=== PATIENT | male | born 1940 | race Caucasian/White ===

== ENCOUNTER → 2018-02-28 10:34 | Outpatient (CLI) | payer MEDICARE, BC, SELFPAY ==
--- NOTE | 2018-02-28 | DI.US.S_ITS ---
PROCEDURE: US CAROTID DOPPLER BI INDICATIONS: LEFT BRUIT TECHNIQUE: Color and pulse Doppler interrogation was performed of both carotid systems, with image documentation and velocity measurements. COMPARISON: [facility], , CAROTID ARTERY DOPPLER BILAT, 05/21/2014, 12:44. [facility], , CAROTID ARTERY DOPPLER BILAT, 11/26/2008, 8:29. FINDINGS: Stenosis calculations are based on SRU (Society of Radiologists in Ultrasound) criteria. Right side: Brachial blood pressure: 146/86 mm Hg. Common carotid artery peak systolic velocity: 112 cm/sec. Internal carotid artery peak systolic velocity: 80 cm/sec. Internal carotid artery end diastolic velocity: 31 cm/sec. External carotid artery peak systolic velocity: 92 cm/sec. ICA/CCA peak systolic ratio: 0.7. Shaw scale imaging description: Mild soft plaque Percent internal carotid artery stenosis: Less than 50% stenosis. Vertebral artery: Flow direction is antegrade. Left side: Brachial blood pressure: 147/83 mm Hg. Common carotid artery peak systolic velocity: 97 cm/sec. Internal carotid artery peak systolic velocity: 80 cm/sec. Internal carotid artery end diastolic velocity: 24 cm/sec. External carotid artery peak systolic velocity: 86 cm/sec. ICA/CCA peak systolic ratio: 0.7. Shaw scale imaging description: Mild soft plaque Percent internal carotid artery stenosis: Less than 50% stenosis. Vertebral artery: Flow direction is antegrade. IMPRESSION: Less than 50% stenosis at the proximal internal carotid arteries bilaterally, no change from comparison study from May of 2014. Dictated by: Ismael Hummel M.D. on 02/28/2018 at 12:57 Approved by: Ismael Hummel M.D. on 02/28/2018 at 12:59
== END ==
PROVIDERS: Family Provider Family Medicine; PCP Family Medicine; Visit Provider Family Medicine
DX: I65.23 Occlusion and stenosis of bilateral carotid arteries (principal)
CPT/HCPCS: 93880

== ENCOUNTER → 2018-03-08 09:49 | Outpatient (CLI) | payer MEDICARE, BC, SELFPAY | PROVIDERS: PCP Family Medicine; Visit Provider Family Medicine | DX: N40.1 Benign prostatic hyperplasia with lower urinary tract symptoms (principal) | CPT/HCPCS: 36415; 84153 ==

== ENCOUNTER → 2018-08-16 10:38 | Outpatient (CLI) | payer MEDICARE, BC, SELFPAY | PROVIDERS: PCP Family Medicine; Visit Provider Family Medicine | DX: N40.1 Benign prostatic hyperplasia with lower urinary tract symptoms (principal) | CPT/HCPCS: 36415; 84153 ==

== ENCOUNTER → 2019-04-04 09:04 | Outpatient (CLI) | payer MEDICARE, SELFPAY ==
[2019-04-04 11:23] LABS: Alanine Aminotransferase 14 IU/L (21-72); Albumin 4.4 g/dL (3.5-5.0); Albumin Globulin Ratio 1.5 (1.0-2.8); Alkaline Phosphatase 62 U/L (38-126); Aspartate Aminotransferase 30 IU/L (17-59); BUN Creatinine Ratio 13.8 (6-22); Blood Urea Nitrogen 11 mg/dL (9-20); Calcium 9.9 mg/dL (8.4-10.2); Carbon Dioxide 29 mmol/L (22-32); Chloride 102 mmol/L (98-107); Cholesterol 252 mg/dL (140-199); Estimated Glomerular Filt Rate > 60.0 mL/min (>60); Globulin 2.9 g/dL (1.7-4.1); Glucose 90 mg/dL (80-110); HDL Cholesterol 44 mg/dL (40-60); HEMOLYSIS < 15 (0-50); LDL Cholesterol Calculated 178 mg/dL (<100); Potassium 4.3 mmol/L (3.4-5.1); Sodium 141 mmol/L (137-145); Total Protein 7.3 g/dL (6.3-8.2); Triglycerides 152 mg/dL (35-150)
[2019-04-04 11:25] LABS: Add Manual Diff / Slide Review NO; Basophils Absolute Auto 0 /uL (0-100); Basophils Percent Auto 0.8 % (0-2); Eosinophils Absolute Auto 100 /uL (0-450); Eosinophils Percent Auto 3.2 % (2-4); Hematocrit 40.1 % (41-53); Hemoglobin 13.5 g/dL (13.5-17.5); Lymphocytes Absolute Auto 1400 /uL (1100-4500); Lymphocytes Percent Auto 32.6 % (25-40); Mean Corpuscular HGB Conc 33.6 % (30-36); Mean Corpuscular Hemoglobin 31.2 PG (26-34); Mean Corpuscular Volume 92.8 fL (80-100); Monocytes Absolute Auto 400 /uL (0-900); Neutrophils Absolute Auto 2400 /uL (1500-7000); Neutrophils Percent Auto 54.4 % (50-75); Platelet Count 233 X10^3/uL (150-400); Red Blood Cell Count 4.32 X10^6/uL (4.5-5.9); Red Cell Distribution Width 13.7 % (11.6-14.8); White Blood Cell Count 4.4 X10^3/uL (4.5-11.0)
== END ==
PROVIDERS: PCP Family Medicine; Visit Provider Family Medicine
DX: I35.0 Nonrheumatic aortic (valve) stenosis (principal); E78.2 Mixed hyperlipidemia; I73.9 Peripheral vascular disease, unspecified
CPT/HCPCS: 36415; 80053; 80061; 85025

== ENCOUNTER → 2019-07-16 13:43 | Outpatient (CLI) | payer MEDICARE, SELFPAY ==
--- NOTE | 2019-07-16 | DI.ECHO.S_ITS ---
[facility]---------+ [facility] +---------+ : : [address] : [address] [address] : : : : [id number] : : : : Phone: [phone]+ Echocardiogram Report + + :Name: GAURAV DUMONT Study Date: 07/16/2019 Height: 76 in : :[facility] Weight: 175 lb : : Gender: Male BSA: 2.1 m2 : :: 1940 Age: 79 yrs BP: 128/58 mmHg: :Reason For Study: Aortic valve stenosis : : Performed By: Rosalva Padilla : :Referring: DWIGHT RUBALCAVA : + + Interpretation Summary The left ventricle is normal in size. Left ventricular systolic function is normal without focal wall motion abnormalities. The ejection fraction is estimated to be 60-65%. Diastolic parameters suggest a relaxation abnormality of the left ventricle, consistent with probable normal filling pressures. The right ventricle grossly appears normal in size with probable normal systolic function. The right ventricular systolic pressure is estimated to be at least 22 mmHg based on an estimated right atrial pressure of 3 mm Hg. The left atrial size is normal. Right atrial size is normal. There is moderate aortic stenosis which has increased since prior study. The calculated aortic valve area is 1.2 cm2. The peak aortic velocity is 3.3 m/sec. The peak aortic velocity on the previous exam was 2.9 m/sec. There is no other significant valvular heart disease. The ascending aorta is mildly enlarged. Procedure: A two-dimensional transthoracic echocardiogram with color flow and Doppler was performed. The study quality was technically adequate. Comparison is made with the echocardiogram of 01-11-17. The patient was in normal sinus rhythm during the exam. Left Ventricle: The left ventricle is normal in size. Left ventricular wall thickness is borderline increased. Left ventricular systolic function is normal without focal wall motion abnormalities. The ejection fraction is estimated to be 60-65%. Diastolic parameters suggest a relaxation abnormality of the left ventricle, consistent with probable normal filling pressures. Right Ventricle: The right ventricle grossly appears normal in size with probable normal systolic function. Atria: The left atrial size is normal. Right atrial size is normal. The interatrial septum is intact with no evidence for an atrial septal defect. Mitral Valve: The mitral valve leaflets appear borderline thickened, but open well. There is mild mitral annular calcification. There is trace mitral regurgitation. Aortic Valve: There is moderate aortic stenosis. The calculated aortic valve area is 1.2 cm2. The peak aortic velocity is 3.3 m/sec. The peak aortic velocity on the previous exam was 2.9 m/sec. The aortic valve mean gradient is 27 mmHg. Severity ratio is 0.26. No aortic regurgitation is present. Tricuspid Valve: The tricuspid valve is normal in structure and function. There is a trace or physiologic amount of tricuspid regurgitation. The right ventricular systolic pressure is estimated to be at least 22 mmHg based on an estimated right atrial pressure of 3 mm Hg. Pulmonic Valve: The pulmonic valve is not well visualized. There is trace pulmonic regurgitation. There is no other significant valvular heart disease. Great Vessels: The aortic root is borderline dilated. The ascending aorta is mildly enlarged. The aortic arch is normal in size. The IVC is of normal diameter and collapses greater than 50% with a sniff. This suggests a low right atrial pressure of 3 mm Hg. Pericardium/ Pleura There is no pericardial effusion. There is no pleural effusion. MMode/2D Measurements & Calculations LVIDd: 4.7 cm LVOT diam: 2.4 cm LVIDs: 2.5 cm Ao root diam: 3.8 cm FS: 46.8 % Aortic Jxn: 3.2 cm IVSd: 1.0 cm asc Aorta Diam: 3.6 cm LVPWd: 1.0 cm Ao Arch Diam (Prox Trans): 2.7 cm LV cheung. diameter/BSA (cm/m^2): 2.3 LV sys. diameter/BSA (cm/m^2): 1.2 LA dimension: 2.9 cm RA long axis: 4.2 cm LA A2 area: 20.2 cm2 RA area: 12.2 cm2 LA A4 area: 20.8 cm2 RA vol: 30.3 ml LA length (vol): 5.9 cm RA : 14.5 ml/m2 LA vol: 60.9 ml RVDd major: 5.4 cm LA vol index: 29.1 ml/m2 RVD1 (basal): 3.0 cm RVD2 (mid): 2.9 cm EARNEST (plan): 1.2 cm2 Doppler Measurements & Calculations Ao V2 max: 334.5 cm/sec LVOT Max Santiago: 88.2 cm/sec Ao V2 mean: 249.0 cm/sec LV V1 max P.1 mmHg Ao max P.8 mmHg LV V1 VTI: 20.9 cm Ao mean P.3 mmHg EARNEST(I,D): 1.2 cm2 Ao V2 VTI: 80.1 cm EARNEST(V,D): 1.2 cm2 sev ratio: 0.26 EARNEST indexed to BSA (cm^2/m^2): 0.56 MV E max santiago: 61.4 cm/sec TR max santiago: 218.9 cm/sec MV A max santiago: 107.2 cm/sec TR max P.2 mmHg MV E/A: 0.57 PA V2 max: 69.0 cm/sec Med Peak E' Santiago: 3.8 cm/sec PA V2 mean: 40.1 cm/sec E/E' med: 16.2 PA mean P.83 mmHg Lat Peak E' Santiago: 2.2 cm/sec PA Accel Time: 0.12 sec E/E' lat: 27.8 E/e' average: 22.0 MV dec time: 0.53 sec MV P1/2t: 155.5 msec MV P1/2t max santiago: 61.7 cm/sec SV(LVOT): 93.6 ml MVA(P1/2t): 1.4 cm2 Reading Physician:03:15 PM
== END ==
PROVIDERS: PCP Family Medicine; Visit Provider Family Medicine
DX: I35.0 Nonrheumatic aortic (valve) stenosis (principal); I77.89 Other specified disorders of arteries and arterioles
CPT/HCPCS: 93306

== ENCOUNTER → 2019-08-08 09:38 | Outpatient (CLI) | payer MEDICARE, SELFPAY ==
[2019-08-08 12:16] LABS: Prostate Specific Antigen 3.18 ng/mL (0.10-4.00)
== END ==
PROVIDERS: PCP Family Medicine; Visit Provider Family Medicine
DX: N40.1 Benign prostatic hyperplasia with lower urinary tract symptoms (principal)
CPT/HCPCS: 36415; 84153

== ENCOUNTER → 2019-08-13 14:47 | Outpatient (CLI) | payer MEDICARE, SELFPAY ==
--- NOTE | 2019-08-13 | DI.RAD.S_ITS ---
PROCEDURE: XR LUMBAR SPINE 2-3V INDICATIONS: RT LEG RADICULOPATHY TECHNIQUE: 3 views of the lumbar spine were acquired. COMPARISON: None. FINDINGS: Bones: 5 [id number] vertebrae are present. Mild levo scoliosis centered at the L3 level. Multilevel disc degeneration, severe at the L2-L3 and to lesser degree L3-L4 and L5-S1 levels. Moderate L5-S1 facet joint arthropathy. No vertebral body compression fractures. No suspicious bony lesions. Soft tissues: Overlying bowel gas pattern is normal. No suspicious soft tissue calcifications. Vascular calcifications indicate atherosclerosis. IMPRESSION: Multilevel degenerative change. Dictated by: Nghia SUH Interpreted: Lyndsay Robledo MD on 08/13/2019 at 16:37 Approved by: Lyndsay Robledo M.D. on 08/13/2019 at 17:05
== END ==
PROVIDERS: PCP Family Medicine; Visit Provider Family Medicine
DX: M47.26 Other spondylosis with radiculopathy, lumbar region (principal); M47.27 Other spondylosis with radiculopathy, lumbosacral region
CPT/HCPCS: 72100

== ENCOUNTER → 2019-12-17 15:57 | Outpatient (CLI) | payer MEDICARE, SELFPAY ==
--- NOTE | 2019-12-17 | DI.ECHO.S_ITS ---
[facility]---------+ [facility] +---------+ : : [address] : [address] [address] : : : : [id number] : : : : Phone: [phone]+ Echocardiogram Report + + :Name: GAURAV DUMONT Study Date: 12/17/2019 Height: 76 in : :[facility] Weight: 170 lb : : Gender: Male BSA: 2.1 m2 : :: 1940 Age: 79 yrs BP: 130/86 mmHg: :Reason For Study: Aortic Stenosis : :Ordering Physician: Dr. Childress : :[facility] Performed By: Justine Chavira : :Referring: DWIGHT RUBALCAVA : + + Interpretation Summary The left ventricle is normal in size. The ejection fraction is estimated to be 60-65%. Left ventricular wall motion is normal. LVEF has not changed. Diastolic parameters suggest a relaxation abnormality of the left ventricle, consistent with probable normal filling pressures. The right ventricle is normal in size and function. Pulmonary artery pressures cannot be estimated because of the lack of a measurable TR jet velocity. Both atria are normal in size. There is moderate to severe aortic stenosis which has slightly increased in severity since prior study. The calculated aortic valve area is 1.1 cm2. The peak aortic velocity is 3.96 m/sec. There is no other significant valvular heart disease. The ascending aorta is mildly enlarged. Procedure: A two-dimensional transthoracic echocardiogram with color flow and Doppler was performed. The study quality was technically adequate. Comparison is made with the echocardiogram of 07/16/2019. The patient was in normal sinus rhythm during the exam. Left Ventricle: The left ventricle is normal in size. Left ventricular wall thickness is borderline increased. The ejection fraction is estimated to be 60-65%. Left ventricular wall motion is normal. Diastolic parameters suggest a relaxation abnormality of the left ventricle, consistent with probable normal filling pressures. Right Ventricle: The right ventricle is normal in size and function. Atria: Both atria are normal in size. There is no Doppler evidence for an interatrial shunt. Mitral Valve: The mitral valve leaflets appear borderline thickened, but open well. There is mild mitral annular calcification. There is trace mitral regurgitation. Aortic Valve: The aortic valve is trileaflet. The aortic valve is moderately calcified. There is moderate to severe aortic stenosis. The calculated aortic valve area is 1.1 cm2. The peak aortic velocity is 3.96 m/sec. No aortic regurgitation is present. Tricuspid Valve: The tricuspid valve is normal in structure and function. There is a trace or physiologic amount of tricuspid regurgitation. Pulmonary artery pressures cannot be estimated because of the lack of a measurable TR jet velocity. Pulmonic Valve: The pulmonic valve is not well seen, but is grossly normal. There is a trace or physiologic amount of pulmonic regurgitation. There is no other significant valvular heart disease. Great Vessels: The aortic root is normal size. The ascending aorta is mildly enlarged. The inferior vena cava was not visualized. Pericardium/ Pleura There is no pericardial effusion. There is no pleural effusion. MMode/2D Measurements & Calculations LVIDd: 4.2 cm LVOT diam: 2.3 cm LVIDs: 2.6 cm Ao root diam: 3.5 cm FS: 38.2 % asc Aorta Diam: 3.6 cm IVSd: 1.0 cm Ao Arch Diam (Prox Trans): 3.2 cm LVPWd: 0.99 cm LV cheung. diameter/BSA (cm/m^2): 2.0 LV sys. diameter/BSA (cm/m^2): 1.3 LA A2 area: 13.9 cm2 RA long axis: 4.5 cm LA A4 area: 12.1 cm2 RA area: 12.1 cm2 LA length (vol): 4.4 cm RA vol: 27.5 ml LA vol: 32.8 ml RA : 13.3 ml/m2 LA vol index: 15.8 ml/m2 RVD1 (basal): 2.9 cm TAPSE: 2.0 cm Doppler Measurements & Calculations Ao V2 max: 375.3 cm/sec LVOT Max Santiago: 103.6 cm/sec Ao V2 mean: 266.0 cm/sec LV V1 max P.1 mmHg Ao max P.3 mmHg LV V1 VTI: 20.5 cm Ao mean P.5 mmHg EARNEST(I,D): 1.2 cm2 Ao V2 VTI: 74.6 cm EARNEST(V,D): 1.2 cm2 sev ratio: 0.27 EARNEST indexed to BSA (cm^2/m^2): 0.56 MV E max santiago: 58.3 cm/sec PA V2 max: 73.2 cm/sec MV A max santiago: 117.7 cm/sec PA V2 mean: 42.8 cm/sec MV E/A: 0.50 PA mean P.95 mmHg Lat Peak E' Santiago: 9.7 cm/sec PA Accel Time: 0.13 sec E/E' lat: 6.0 MV dec time: 0.28 sec MV P1/2t: 82.9 msec MV P1/2t max santiago: 58.0 cm/sec SV(LVOT): 86.7 ml MVA(P1/2t): 2.7 cm2 Reading Physician:06:49 PM
== END ==
PROVIDERS: PCP Family Medicine; Referring Provider Family Medicine; Visit Provider Family Medicine
DX: I35.0 Nonrheumatic aortic (valve) stenosis (principal); R06.09 Other forms of dyspnea; I77.89 Other specified disorders of arteries and arterioles
CPT/HCPCS: 93306

== ENCOUNTER → 2020-05-28 08:56 | Outpatient (CLI) | payer OTHER, SELFPAY ==
[2020-05-28 09:55] LABS: Add Manual Diff / Slide Review NO; Basophils Absolute Auto 0 /uL (0-100); Basophils Percent Auto 0.7 % (0-2); Eosinophils Absolute Auto 100 /uL (0-450); Eosinophils Percent Auto 2.1 % (2-4); Hematocrit 39.4 % (41-53); Hemoglobin 13.1 g/dL (13.5-17.5); Lymphocytes Absolute Auto 1200 /uL (1100-4500); Lymphocytes Percent Auto 19.2 % (25-40); Mean Corpuscular HGB Conc 33.2 % (30-36); Mean Corpuscular Hemoglobin 30.8 PG (26-34); Mean Corpuscular Volume 92.8 fL (80-100); Monocytes Absolute Auto 500 /uL (0-900); Monocytes Percent Auto 8.2 % (3-14); Neutrophils Absolute Auto 4200 /uL (1500-7000); Neutrophils Percent Auto 69.8 % (50-75); Platelet Count 230 X10^3/uL (150-400); Red Blood Cell Count 4.24 X10^6/uL (4.5-5.9); Red Cell Distribution Width 13.7 % (11.6-14.8)
[2020-05-28 10:32] LABS: Alanine Aminotransferase 19 IU/L (<50); Albumin 4.4 g/dL (3.5-5.0); Albumin Globulin Ratio 1.7 (1.0-2.8); Alkaline Phosphatase 59 U/L (38-126); Aspartate Aminotransferase 28 IU/L (17-59); Bilirubin Total 1.3 mg/dL (0.2-1.3); Blood Urea Nitrogen 12 mg/dL (9-20); Calcium 10.1 mg/dL (8.4-10.2); Carbon Dioxide 29 mmol/L (22-32); Chloride 104 mmol/L (98-107); Cholesterol 239 mg/dL (140-199); Estimated Glomerular Filt Rate > 60.0 mL/min (>60); Globulin 2.6 g/dL (1.7-4.1); Glucose 95 mg/dL (80-110); HDL Cholesterol 47 mg/dL (40-60); HEMOLYSIS < 15 (0-50); LDL Cholesterol Calculated 161 mg/dL (<100); Potassium 4.9 mmol/L (3.4-5.1); Sodium 138 mmol/L (137-145); Triglycerides 154 mg/dL (35-150)
[2020-05-28 10:58] LABS: Prostate Specific Antigen 2.86 ng/mL (0.10-4.00)
== END ==
PROVIDERS: PCP Family Medicine; Referring Provider Family Medicine; Visit Provider Family Medicine
DX: Z00.00 Encounter for general adult medical examination without abnormal findings (principal)
CPT/HCPCS: 36415; 80053; 80061; 84153; 85025

== ENCOUNTER → 2020-06-11 15:18 | Outpatient (CLI) | payer MEDICARE, SELFPAY ==
--- NOTE | 2020-06-11 | DI.RAD.S_ITS ---
PROCEDURE: XR CERVICAL SPINE 2V OR 3V INDICATIONS: DIZZINESS TECHNIQUE: 3 view(s) of the cervical spine were acquired. COMPARISON: None. FINDINGS: Bones: No fractures or dislocations to the T1 level. The lateral masses of C1 appear intact on the odontoid view. No suspicious bony lesions. Note is made of moderately severe to severe degenerative disc disease from C3 through C7, without appreciable abnormal subluxation. Facet osteoarthritis also is moderately severe along these portions of the cervical spine. Soft tissues: No prevertebral soft tissue swelling. 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 Spinal and foraminal stenosis is anticipated to be present to a significant degree through these regions. Follow-up by MR scanning may be warranted. No trauma found. Dictated by: Ismael Hummel M.D. on 06/11/2020 at 16:38 Approved by: Ismale Hummel M.D. on 06/11/2020 at 16:39
== END ==
PROVIDERS: PCP Family Medicine; Referring Provider Family Medicine; Visit Provider Family Medicine
DX: R42 Dizziness and giddiness (principal); M50.31 Other cervical disc degeneration, high cervical region; M47.812 Spondylosis without myelopathy or radiculopathy, cervical region
CPT/HCPCS: 72040

== ENCOUNTER → 2021-04-22 08:26 | Outpatient (CLI) | payer MEDICARE, SELFPAY ==
[2021-04-22 08:53] LABS: Add Manual Diff / Slide Review NO; Basophils Absolute Auto 0 /uL (0-100); Basophils Percent Auto 0.9 % (0-2); Eosinophils Absolute Auto 100 /uL (0-450); Eosinophils Percent Auto 2.6 % (2-4); Hematocrit 38.6 % (41-53); Hemoglobin 12.7 g/dL (13.5-17.5); Lymphocytes Absolute Auto 1500 /uL (1100-4500); Lymphocytes Percent Auto 28.5 % (25-40); Mean Corpuscular Hemoglobin 30.5 PG (26-34); Mean Corpuscular Volume 92.4 fL (80-100); Monocytes Absolute Auto 500 /uL (0-900); Neutrophils Absolute Auto 3000 /uL (1500-7000); Platelet Count 231 X10^3/uL (150-400); Red Blood Cell Count 4.17 X10^6/uL (4.5-5.9); Red Cell Distribution Width 14.1 % (11.6-14.8); White Blood Cell Count 5.1 X10^3/uL (4.5-11.0)
[2021-04-22 09:16] LABS: Alanine Aminotransferase 21 IU/L (<50); Albumin 4.2 g/dL (3.5-5.0); Albumin Globulin Ratio 1.6 (1.0-2.8); Alkaline Phosphatase 61 U/L (38-126); Aspartate Aminotransferase 31 IU/L (17-59); Bilirubin Total 1.1 mg/dL (0.2-1.3); Blood Urea Nitrogen 10 mg/dL (9-20); Calcium 9.6 mg/dL (8.4-10.2); Carbon Dioxide 30 mmol/L (22-32); Chloride 105 mmol/L (98-107); Cholesterol 242 mg/dL (140-199); Estimated Glomerular Filt Rate > 60.0 mL/min (>60); Globulin 2.7 g/dL (1.7-4.1); Glucose 90 mg/dL (80-110); HDL Cholesterol 47 mg/dL (40-60); LDL Cholesterol Calculated 170 mg/dL (<100); Potassium 4.2 mmol/L (3.4-5.1); Sodium 140 mmol/L (137-145); Total Protein 6.9 g/dL (6.3-8.2); Triglycerides 126 mg/dL (35-150)
[2021-04-22 10:09] LABS: HEMOLYSIS < 15 (0-50); Prostate Specific Antigen 3.09 ng/mL (0.10-4.00)
== END ==
PROVIDERS: PCP Family Medicine; Referring Provider Family Medicine; Visit Provider Family Medicine
DX: N40.1 Benign prostatic hyperplasia with lower urinary tract symptoms (principal); I10 Essential (primary) hypertension; I35.0 Nonrheumatic aortic (valve) stenosis; I73.9 Peripheral vascular disease, unspecified; E78.41 Elevated Lipoprotein(a)
CPT/HCPCS: 36415; 80053; 80061; 84153; 85025

== ENCOUNTER → 2021-05-06 11:05 | Outpatient (CLI) | payer MEDICARE, SELFPAY ==
[2021-05-06 12:08] LABS: Add Manual Diff / Slide Review NO; Basophils Absolute Auto 0 /uL (0-100); Basophils Percent Auto 0.9 % (0-2); Eosinophils Absolute Auto 100 /uL (0-450); Eosinophils Percent Auto 2.7 % (2-4); Hemoglobin 12.6 g/dL (13.5-17.5); Lymphocytes Absolute Auto 1400 /uL (1100-4500); Lymphocytes Percent Auto 30.1 % (25-40); Mean Corpuscular HGB Conc 33.2 % (30-36); Mean Corpuscular Hemoglobin 30.8 PG (26-34); Mean Corpuscular Volume 92.7 fL (80-100); Monocytes Absolute Auto 500 /uL (0-900); Monocytes Percent Auto 10.1 % (3-14); Neutrophils Absolute Auto 2700 /uL (1500-7000); Neutrophils Percent Auto 56.2 % (50-75); Platelet Count 231 X10^3/uL (150-400); Red Cell Distribution Width 14.1 % (11.6-14.8); White Blood Cell Count 4.8 X10^3/uL (4.5-11.0)
[2021-05-06 12:22] LABS: Lactate Dehydrogenase 503 U/L (313-618)
[2021-05-06 12:36] LABS: HEMOLYSIS < 15 (0-50); Iron 80 ug/dL (49-181)
[2021-05-06 12:48] LABS: Percent Iron Saturation 24 % (20-50); Total Iron Binding Capacity 338 ug/dL (261-462); Transferrin 251 mg/dL (206-381)
[2021-05-06 13:01] LABS: Ferritin 85 ng/mL (18-464)
[2021-05-06 13:31] LABS: Folate > 20.0 ng/mL (2.76-20.0); Vitamin B12 621 pg/mL (239-931)
[2021-05-08 01:01] LABS: Methylmalonic Acid,Serum 173 nmol/L (0-378)
== END ==
PROVIDERS: PCP Family Medicine; Referring Provider Family Medicine; Visit Provider Family Medicine
DX: D64.9 Anemia, unspecified (principal)
CPT/HCPCS: 36415; 82607; 82728; 82746; 83540; 83550; 83615; 83921; 85025

== ENCOUNTER → 2021-07-05 14:52 | Outpatient (CLI) | payer MEDICARE, SELFPAY | PROVIDERS: PCP Family Medicine; Referring Provider Family Medicine; Visit Provider Family Medicine | DX: M85.852 Other specified disorders of bone density and structure, left thigh (principal); Z87.891 Personal history of nicotine dependence | CPT/HCPCS: 77080 ==

== ENCOUNTER → 2022-05-26 08:47 | Outpatient (CLI) | payer MEDICARE, SELFPAY ==
[2022-05-26 09:14] LABS: Add Manual Diff / Slide Review NO; Basophils Absolute Auto 0 /uL (0-100); Eosinophils Absolute Auto 100 /uL (0-450); Eosinophils Percent Auto 2.5 % (2-4); Hematocrit 36.2 % (41-53); Hemoglobin 12.5 g/dL (13.5-17.5); Lymphocytes Absolute Auto 1200 /uL (1100-4500); Lymphocytes Percent Auto 26.9 % (25-40); Mean Corpuscular HGB Conc 34.5 % (30-36); Mean Corpuscular Hemoglobin 31.3 PG (26-34); Mean Corpuscular Volume 90.7 fL (80-100); Monocytes Absolute Auto 400 /uL (0-900); Monocytes Percent Auto 9.5 % (3-14); Neutrophils Absolute Auto 2600 /uL (1500-7000); Neutrophils Percent Auto 60.1 % (50-75); Platelet Count 223 X10^3/uL (150-400); Red Blood Cell Count 3.99 X10^6/uL (4.5-5.9); Red Cell Distribution Width 13.8 % (11.6-14.8); White Blood Cell Count 4.4 X10^3/uL (4.5-11.0)
[2022-05-26 09:39] LABS: Alanine Aminotransferase 17 IU/L (<50); Albumin Globulin Ratio 1.5 (1.0-2.8); Alkaline Phosphatase 59 U/L (38-126); Aspartate Aminotransferase 25 IU/L (17-59); BUN Creatinine Ratio 14.4 (6-22); Bilirubin Total 1.2 mg/dL (0.2-1.3); Blood Urea Nitrogen 13 mg/dL (9-20); Calcium 9.5 mg/dL (8.4-10.2); Carbon Dioxide 30 mmol/L (22-32); Chloride 104 mmol/L (98-107); Cholesterol 232 mg/dL (140-199); Estimated Glomerular Filt Rate > 60 mL/min (>60); Globulin 2.6 g/dL (1.7-4.1); Glucose 92 mg/dL (80-110); HDL Cholesterol 41 mg/dL (40-60); HEMOLYSIS < 15 (0-50); LDL Cholesterol Calculated 166 mg/dL (<100); Potassium 4.5 mmol/L (3.4-5.1); Sodium 139 mmol/L (137-145); Total Protein 6.6 g/dL (6.3-8.2); Triglycerides 127 mg/dL (35-150)
[2022-05-26 10:10] LABS: Prostate Specific Antigen 3.73 ng/mL (0.10-4.00)
== END ==
PROVIDERS: PCP Family Medicine; Referring Provider Family Medicine; Visit Provider Family Medicine
DX: E78.5 Hyperlipidemia, unspecified (principal); N40.1 Benign prostatic hyperplasia with lower urinary tract symptoms; M85.80 Other specified disorders of bone density and structure, unspecified site; I35.0 Nonrheumatic aortic (valve) stenosis
CPT/HCPCS: 36415; 80053; 80061; 82306; 84153; 85025

== ENCOUNTER → 2024-04-24 09:08 | Outpatient (CLI) | payer MEDICARE, SELFPAY ==
[2024-04-24 09:43] LABS: Add Manual Diff / Slide Review NO; Basophils Absolute Auto 100 /uL (0-100); Basophils Percent Auto 0.9 % (0-2); Eosinophils Absolute Auto 200 /uL (0-450); Eosinophils Percent Auto 3.1 % (2-4); Hematocrit 35.2 % (41-53); Hemoglobin 11.8 g/dL (13.5-17.5); Lymphocytes Absolute Auto 1500 /uL (1100-4500); Lymphocytes Percent Auto 24.1 % (25-40); Mean Corpuscular HGB Conc 33.5 % (30-36); Mean Corpuscular Hemoglobin 30.7 PG (26-34); Mean Corpuscular Volume 91.6 fL (80-100); Monocytes Absolute Auto 500 /uL (0-900); Monocytes Percent Auto 8.3 % (3-14); Neutrophils Absolute Auto 3900 /uL (1500-7000); Neutrophils Percent Auto 63.6 % (50-75); Platelet Count 241 X10^3/uL (150-400); Red Blood Cell Count 3.84 X10^6/uL (4.5-5.9); Red Cell Distribution Width 14.3 % (11.6-14.8); White Blood Cell Count 6.2 X10^3/uL (4.5-11.0)
[2024-04-24 10:13] LABS: Alanine Aminotransferase 15 IU/L (<50); Albumin 4.1 g/dL (3.5-5.0); Albumin Globulin Ratio 1.6 (1.0-2.8); Alkaline Phosphatase 79 U/L (38-126); Aspartate Aminotransferase 25 IU/L (17-59); BUN Creatinine Ratio 14.3 (6-22); Blood Urea Nitrogen 14 mg/dL (9-20); Calcium 9.7 mg/dL (8.4-10.2); Carbon Dioxide 31 mmol/L (22-32); Chloride 106 mmol/L (98-107); Cholesterol 227 mg/dL (140-199); Estimated Glomerular Filt Rate > 60 mL/min (>60); Globulin 2.6 g/dL (1.7-4.1); Glucose 92 mg/dL (80-110); HDL Cholesterol 51 mg/dL (40-60); HEMOLYSIS < 15 (0-50); LDL Cholesterol Calculated 154 mg/dL (<100); Potassium 4.3 mmol/L (3.4-5.1); Sodium 139 mmol/L (137-145); Total Protein 6.7 g/dL (6.3-8.2); Triglycerides 112 mg/dL (35-150)
[2024-04-24 10:47] LABS: Ferritin 156 ng/mL (18-464)
== END ==
PROVIDERS: PCP Internal Medicine; Referring Provider Internal Medicine; Visit Provider Internal Medicine
DX: E78.5 Hyperlipidemia, unspecified (principal); D63.8 Anemia in other chronic diseases classified elsewhere; R42 Dizziness and giddiness
CPT/HCPCS: 36415; 80053; 80061; 82728; 85025